=== PATIENT | male | born 1975 | race Caucasian/White ===

== ENCOUNTER 2016-09-09 19:50 | Emergency (ER) | payer MEDICAID ==
[~2016-09-09] VITALS: Ht 182.9 cm; Wt 120.7 kg
[~2016-09-09 19:50] MED LIST: GABA300C10 PO; GLIP5TAB10 PO; HYDR-3240 PO; IBUP800T PO; LISI30TA4 PO; TYLENOL PO
[2016-09-09 19:53] VITALS: BP 155/85
== END 2016-09-09 20:30 | disposition home or self-care (01) ==
LOC: ED 19:50
DX: S61.222A Laceration with foreign body of right middle finger without damage to nail, initial encounter (principal); W26.0XXA Contact with knife, initial encounter; Y93.89 Activity, other specified; Y92.009 Unspecified place in unspecified non-institutional (private) residence as the place of occurrence of the external cause; Y99.9 Unspecified external cause status
CPT/HCPCS: 12001; 99283

== ENCOUNTER 2017-12-13 20:15 | Emergency (ER) | payer MEDICAID ==
[~2017-12-13] VITALS: Ht 182.9 cm; Wt 119.6 kg
[~2017-12-13 20:15] MED LIST changes: +IBUP-1223 PO; -IBUP800T PO
[2017-12-13 20:18] VITALS: BP 136/79
== END 2017-12-13 20:59 | disposition home or self-care (01) ==
LOC: ED 20:40
DX: J00 Acute nasopharyngitis [common cold] (principal); I10 Essential (primary) hypertension; E11.9 Type 2 diabetes mellitus without complications
CPT/HCPCS: 71046; 99284

== ENCOUNTER 2018-02-26 13:51 | Inpatient (IN) | payer MEDICAID, OTHER ==
[~2018-02-26] VITALS: Ht 182.9 cm; Wt 117.8 kg
[2018-02-26 14:18] LABS: BASOPHILS # (AUTO) 0.07 x10^3/uL (0-0.1); BASOPHILS % (AUTO) 1 % (0-1); EOSINOPHILS # (AUTO) 0.07 x10^3/uL (0-0.4); EOSINOPHILS % (AUTO) 1 % (1-7); LYMPHOCYTES # (AUTO) 1.95 x10^3/uL (1-3.4); LYMPHOCYTES % (AUTO) 14 % (22-44); MD NO; MEAN CORPUSCULAR HEMOGLOBIN 27.9 pg (27.5-34.5); MEAN CORPUSCULAR HGB CONC 34.4 g/dL (33.2-36.2); MEAN CORPUSCULAR VOLUME 81.2 fL (81-97); MEAN PLATELET VOLUME 8.7 fL (7.4-10.4); MONOCYTES # (AUTO) 0.82 x10^3/uL (0.2-0.8); MONOCYTES % (AUTO) 6 % (2-9); NEUTROPHILS # (AUTO) 11.41 x10^3/uL (1.8-6.8); NEUTROPHILS % (AUTO) 80 % (42-75); PLATELET COUNT 417 x10^3/uL (130-400); RED BLOOD COUNT 5.57 x10^6/uL (4.38-5.82); RED CELL DISTRIBUTION WIDTH 14.7 % (9.4-14.8)
[2018-02-26 14:27] LABS: ALANINE AMINOTRANSFERASE 40 U/L (12-78); ALBUMIN 3.9 g/dL (3.4-5.0); ANION GAP 10 mmol/L (5-15); CALCIUM 9.7 mg/dL (8.5-10.1); CHLORIDE 102 mmol/L (98-107)
[2018-02-26 14:29] LABS: ALKALINE PHOSPHATASE 60 U/L (45-117); BILIRUBIN,TOTAL 0.6 mg/dL (0.2-1.0); TOTAL PROTEIN 8.2 g/dL (6.4-8.2)
[2018-02-26] MEDS ORDERED: SODIUM CHLORIDE 0.9% 1,000ML IVBOLUS ONE (14:30)
[2018-02-26] MEDS ORDERED: MORPHINE SULFATE 4 MG/ML, 1ML IVPush ONE ×2 (14:30→15:30)
[2018-02-26] MEDS ORDERED: PROMETHAZINE 25 MG/ML, 1ML IM ONE (14:30)
[2018-02-26] MEDS ORDERED: PROMETHAZINE 25 MG/ML, 1ML ONE (14:44)
[2018-02-26] MEDS ORDERED: MORPHINE SULFATE 4 MG/ML, 1ML ONE ×2 (14:44→15:25)
[2018-02-26 16:38] LABS: MICROSCOPIC AUTO
[2018-02-26 16:39] LABS: CULTURE INDICATED? NO
[2018-02-26] MEDS ORDERED: GLUCAGON 1 MG IM PRN (17:00)
[2018-02-26] MEDS ORDERED: hydrALAzine 20 MG/ML, 1ML IVPush PRN (17:00)
[2018-02-26] MEDS ORDERED: DEXTROSE 50%, 50ML SYRINGE IVPush PRN (17:00)
[2018-02-26] MEDS ORDERED: DEXTROSE 4 GM TAB.CHEW PO PRN (17:00)
[2018-02-26] MEDS: INSULIN LISPRO 100 UNITS/ML, PEN SQ-INSULIN SCH ×2 (17:00→21:20)
[2018-02-26] MEDS ORDERED: LORazepam 2 MG/ML, 1ML IVPush ONE ×2 (17:00→17:15)
[2018-02-26] MEDS ORDERED: morphine SULFATE 10 MG/ML, 1ML IVPush PRN (17:00)
[2018-02-26] MEDS: ENOXAPARIN 40 MG/0.4 ML SQ SCH (18:00)
[2018-02-26] MEDS: KETOROLAC 30 MG/1 ML IV PRN (18:01)
[2018-02-26 19:15] VITALS: BP 139/92
[2018-02-26] MEDS: AMPICILLIN/SULBACTAM 3 GM in SODIUM CHLORIDE 0.9% 100 ML IV SCH (19:29)
[2018-02-26] MEDS: NS + 20MEQ KCL 1,000 ML IV SCH (20:58)
[2018-02-26] MEDS ORDERED: INSULIN GLARGINE 100 UNITS/ML, PEN SQ-INSULIN SCH (21:00)
[2018-02-26] MEDS: SODIUM CHLORIDE FLUSH 10ML SYR IVF SCH (21:01)
[2018-02-26] MEDS ORDERED: HYDROmorphone 2 MG/ML, 1ML IVPush ONE (23:00)
[2018-02-27 01:32] VITALS: BP 133/87
[2018-02-27] MEDS: KETOROLAC 30 MG/1 ML IV PRN ×2 (03:04→15:05)
[2018-02-27] MEDS: AMPICILLIN/SULBACTAM 3 GM in SODIUM CHLORIDE 0.9% 100 ML IV SCH ×3 (03:05→21:05)
[2018-02-27] MEDS: ONDANSETRON 2MG/ML, 2ML IVPush PRN ×2 (03:14→17:09)
[2018-02-27] MEDS: NS + 20MEQ KCL 1,000 ML IV SCH ×2 (04:33→21:03)
[2018-02-27 05:03] LABS: ANION GAP 9 mmol/L (5-15); CALCIUM 8.4 mg/dL (8.5-10.1); CHLORIDE 107 mmol/L (98-107)
[2018-02-27 05:04] LABS: CREATININE 0.93 mg/dL (0.7-1.3)
[2018-02-27 05:05] LABS: BASOPHILS # (AUTO) 0.03 x10^3/uL (0-0.1); BASOPHILS % (AUTO) 0 % (0-1); EOSINOPHILS # (AUTO) 0.19 x10^3/uL (0-0.4); EOSINOPHILS % (AUTO) 2 % (1-7); LYMPHOCYTES # (AUTO) 1.85 x10^3/uL (1-3.4); LYMPHOCYTES % (AUTO) 14 % (22-44); MD NO; MEAN CORPUSCULAR HEMOGLOBIN 27.9 pg (27.5-34.5); MEAN CORPUSCULAR HGB CONC 34.3 g/dL (33.2-36.2); MEAN CORPUSCULAR VOLUME 81.4 fL (81-97); MEAN PLATELET VOLUME 8.6 fL (7.4-10.4); MONOCYTES # (AUTO) 0.79 x10^3/uL (0.2-0.8); MONOCYTES % (AUTO) 6 % (2-9); NEUTROPHILS % (AUTO) 78 % (42-75); PLATELET COUNT 339 x10^3/uL (130-400); RED BLOOD COUNT 5.01 x10^6/uL (4.38-5.82); RED CELL DISTRIBUTION WIDTH 14.7 % (9.4-14.8)
[2018-02-27 05:42] LABS: HEMOGLOBIN A1C 9.3 % (4.2-6.3)
[2018-02-27] MEDS ORDERED: LACTATED RINGERS 500 ML IVBOLUS ONE (06:30)
[2018-02-27] MEDS: INSULIN LISPRO 100 UNITS/ML, PEN SQ-INSULIN SCH ×4 (07:00→20:13)
[2018-02-27 08:30] VITALS: BP 143/99
[2018-02-27] MEDS: PANTOPRAZOLE 40 MG IV IVPush SCH (08:39)
[2018-02-27] MEDS: SODIUM CHLORIDE FLUSH 10ML SYR IVF SCH ×2 (08:40→21:11)
[2018-02-27] MEDS: LACTULOSE 20 GM/30 ML UDC PO SCH ×3 (11:41→21:00)
[2018-02-27 14:30] VITALS: BP 154/99
[2018-02-27 16:13] VITALS: BP 154/99
[2018-02-27 18:58] VITALS: BP 149/87
[2018-02-27] MEDS: ENOXAPARIN 40 MG/0.4 ML SQ SCH (20:00)
[2018-02-27] MEDS ORDERED: INSULIN GLARGINE 100 UNITS/ML, PEN SQ-INSULIN SCH (21:00)
[2018-02-27] MEDS ORDERED: HYDROmorphone 1 MG/ML, 1ML IV ONE (21:30)
[2018-02-27] MEDS ORDERED: HYDROmorphone 2 MG/ML, 1ML ONE (21:40)
[2018-02-28 00:15] VITALS: BP 140/100
[2018-02-28] MEDS: ONDANSETRON 2MG/ML, 2ML IVPush PRN ×2 (00:20→09:54)
[2018-02-28] MEDS: KETOROLAC 30 MG/1 ML IV PRN (04:57)
[2018-02-28 04:58] LABS: BASOPHILS # (AUTO) 0.02 x10^3/uL (0-0.1); BASOPHILS % (AUTO) 0 % (0-1); EOSINOPHILS # (AUTO) 0.03 x10^3/uL (0-0.4); EOSINOPHILS % (AUTO) 0 % (1-7); LYMPHOCYTES # (AUTO) 1.42 x10^3/uL (1-3.4); LYMPHOCYTES % (AUTO) 11 % (22-44); MD NO; MEAN CORPUSCULAR HEMOGLOBIN 27.8 pg (27.5-34.5); MEAN CORPUSCULAR HGB CONC 34.1 g/dL (33.2-36.2); MEAN CORPUSCULAR VOLUME 81.5 fL (81-97); MEAN PLATELET VOLUME 8.6 fL (7.4-10.4); MONOCYTES # (AUTO) 0.79 x10^3/uL (0.2-0.8); MONOCYTES % (AUTO) 6 % (2-9); NEUTROPHILS # (AUTO) 10.28 x10^3/uL (1.8-6.8); NEUTROPHILS % (AUTO) 82 % (42-75); PLATELET COUNT 339 x10^3/uL (130-400); RED CELL DISTRIBUTION WIDTH 14.6 % (9.4-14.8)
[2018-02-28] MEDS: AMPICILLIN/SULBACTAM 3 GM in SODIUM CHLORIDE 0.9% 100 ML IV SCH ×3 (04:58→23:41)
[2018-02-28 05:09] LABS: ANION GAP 7 mmol/L (5-15); CHLORIDE 105 mmol/L (98-107)
[2018-02-28 08:30] VITALS: BP 154/98
[2018-02-28] MEDS ORDERED: LIDOCAINE 2% VISCOUS, 100ML MM PRN (08:30)
[2018-02-28] MEDS: SODIUM CHLORIDE FLUSH 10ML SYR IVF SCH ×2 (09:07→21:00)
[2018-02-28] MEDS: NS + 20MEQ KCL 1,000 ML IV SCH ×2 (09:07→15:42)
[2018-02-28] MEDS: PANTOPRAZOLE 40 MG IV IVPush SCH (09:07)
[2018-02-28] MEDS: INSULIN LISPRO 100 UNITS/ML, PEN SQ-INSULIN SCH ×4 (09:07→20:51)
[2018-02-28] MEDS: LACTULOSE 20 GM/30 ML UDC PO SCH (09:07)
[2018-02-28] MEDS ORDERED: HYDROmorphone 1 MG/ML, 1ML IV PRN ×2 (11:00)
[2018-02-28 14:30] VITALS: BP 155/99
[2018-02-28 18:56] VITALS: BP 144/91
[2018-02-28] MEDS: ENOXAPARIN 40 MG/0.4 ML SQ SCH (20:00)
[2018-02-28] MEDS ORDERED: INSULIN GLARGINE 100 UNITS/ML, PEN SQ-INSULIN SCH (21:00)
[2018-03-01] MEDS: NS + 20MEQ KCL 1,000 ML IV SCH ×2 (00:24→09:00)
[2018-03-01 01:00] VITALS: BP 140/88
[2018-03-01 07:18] VITALS: BP 153/95
[2018-03-01] MEDS: AMPICILLIN/SULBACTAM 3 GM in SODIUM CHLORIDE 0.9% 100 ML IV SCH (07:25)
[2018-03-01] MEDS: INSULIN LISPRO 100 UNITS/ML, PEN SQ-INSULIN SCH ×2 (07:25→11:17)
[2018-03-01] MEDS: PANTOPRAZOLE 40 MG IV IVPush SCH (07:25)
[2018-03-01 07:37] LABS: ANION GAP 5 mmol/L (5-15); CALCIUM 8.1 mg/dL (8.5-10.1); CHLORIDE 109 mmol/L (98-107)
[2018-03-01] MEDS: SODIUM CHLORIDE FLUSH 10ML SYR IVF SCH (09:00)
[2018-03-01] MEDS ORDERED: METF500T PO (09:39)
[2018-03-01] MEDS ORDERED: LISINOPRIL 10 MG TABLET PO SCH (10:00)
[2018-03-01] MEDS ORDERED: GABAPENTIN 300 MG CAPSULE PO SCH (11:00)
== END 2018-03-01 13:30 | disposition home or self-care (01) | DRG 389 ==
LOC: ED 14:32 → EDIP 16:13 → 3NE 17:38
PROVIDERS: ADMIT Hospitalist; ATTEND Hospitalist
DX: K56.609 Unspecified intestinal obstruction, unspecified as to partial versus complete obstruction (principal); F11.20 Opioid dependence, uncomplicated; R65.10 Systemic inflammatory response syndrome (SIRS) of non-infectious origin without acute organ dysfunction; E11.9 Type 2 diabetes mellitus without complications; E78.5 Hyperlipidemia, unspecified; E86.0 Dehydration; G89.29 Other chronic pain; I10 Essential (primary) hypertension; J32.9 Chronic sinusitis, unspecified; J45.909 Unspecified asthma, uncomplicated; K21.9 Gastro-esophageal reflux disease without esophagitis; R20.2 Paresthesia of skin; M54.5 Low back pain; R19.7 Diarrhea, unspecified; Z82.49 Family history of ischemic heart disease and other diseases of the circulatory system; Z79.84 Long term (current) use of oral hypoglycemic drugs; Z83.3 Family history of diabetes mellitus
CPT/HCPCS: 36415; 74018; 74176; 74250; 80048; 80053; 81001; 82962; 83036; 83690; 85025; 96372; 96374; 96376; G0378; J0295; J1170; J1885; J2405; J2550; J3480; J7120; C9113; J1815; J7030